=== PATIENT | male | born 1945 | race African-American/Black ===

== ENCOUNTER 2020-01-27 02:53 | Inpatient (IN) | payer MEDICARE, OTHER ==
[2020-01-27] VITALS (9 sets, daily range): BP systolic 129–172; BP diastolic 69–97
[~2020-01-27] VITALS: Ht 177.8 cm; Wt 69.4 kg
[2020-01-27] MEDS ORDERED: CHILDREN'S ASPI81 M1 PO (03:52)
[2020-01-27] MEDS ORDERED: BASAGLAR K100 UNIT/1 SUBQ (03:53)
[2020-01-27] MEDS ORDERED: LIPITOR40 MG PO (03:53)
[2020-01-27] MEDS ORDERED: CHOLECALCIFEROL PO (03:54)
[2020-01-27] MEDS ORDERED: CARVEDILOL12.5 MG PO (03:54)
[2020-01-27] MEDS ORDERED: LISINOPRIL PO (03:55)
[2020-01-27] MEDS ORDERED: NOVOLOG100 UNIT/M SUBQ (03:56)
[2020-01-27 04:37] LABS: BASOPHILS 0.3 % (0.0-2.0); EOSINOPHILS 1.8 % (0.0-3.0); HEMATOCRIT 44.4 % (42.0-52.0); HEMOGLOBIN 14.7 gm/dL (14.0-18.0); LYMPHOCYTES 10.9 % (24.0-44.0); MCH 29.7 pg (26.0-34.0); MCHC 33.1 g/dL (28.0-37.0); MCV 89.8 fL (80.0-100.0); MONOCYTES 9.4 % (1.0-8.0); PLATELET COUNT 263 thou/uL (150-400); POLYS 77.6 % (36.0-66.0); RBC 4.94 mil/uL (4.50-6.00); RDW 16.2 % (10.5-14.5)
[2020-01-27 05:14] LABS: CALCIUM 9.3 mg/dL (8.5-10.1); CREATININE 2.1 mg/dL (0.7-1.3); POTASSIUM 3.7 mmol/L (3.5-5.1)
[2020-01-27 05:20] LABS: ALBUMIN 2.4 g/dL (3.4-5.0); TOTAL BILIRUBIN 0.4 mg/dL (0.2-1.0); TOTAL PROTEIN 8.6 g/dL (6.4-8.2); TROPONIN-I 0.11 ng/mL (<0.06)
--- NOTE | 2020-01-27 07:51 | EKG ---
[facility] [place] [address] ELECTROCARDIOGRAM REPORT Name: KUNAL CHRISTINA Room #: 170-1 ADM IN M.R.#: [id number] Admission: 01/27/20 Attend Phys: Ar Blas Discharge: Date of : 43 Report #: [id number] THIS REPORT FOR: cc: Good Johnson James D. DO Lundgren, Craig H. MD [facility] ~ THIS REPORT FOR: //name// 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: : 1945 Requested By: Carl Patterson Order Number: [id number] MD: David Howard Measurements Intervals [place] Rate: 107 P: 15 AK: 130 QRS: 8 QRSD: 67 T: -77 QT: 337 QTc: 450 Interpretive Statements Sinus tachycardia Atrial premature complex Abnormal R-wave progression, early transition Small inferior Q waves Nonspecific T wave abnormality No previous ECG available for comparison Electronically Signed On 01-27-2020 7:50:53 CDT by David Howard [email or web address] <ELECTRONICALLY SIGNED> By: David Howard MD, [facility] 01/27/20 0750 5 David Howard MD, [facility] /EPI
[2020-01-27 08:02] LABS: URINE BILIRUBIN NEGATIVE (Negative); URINE BLOOD 2+ (Negative); URINE CLARITY CLEAR; URINE COLOR YELLOW; URINE GLUCOSE-RANDOM* NEGATIVE (Negative); URINE KETONES NEGATIVE (Negative); URINE LEUKOCYTES-REFLEX NEGATIVE (Negative); URINE NITRITE-REFLEX NEGATIVE (Negative); URINE PROTEIN (DIPSTICK) 2+ (Negative); URINE UROBILINOGEN 0.2 E.U./dl (0.2-1.0)
[2020-01-27 08:36] LABS: TSH 0.465 uIU/mL (0.358-3.740)
[2020-01-27 08:47] LABS: CASTS None Seen /LPF (None Seen); SQUAMOUS 0-3 Few /LPF (0-3)
[2020-01-27 08:48] LABS: AMORPHOUS URATES Few /LPF (None Seen); BACTERIA-REFLEX 1-9 Few /HPF (None Seen); MUCUS 4-6 Moderate strn/LPF (None Seen); URINE RBC 0-2 Rare /HPF (0-2); URINE WBC-REFLEX 0-5 Rare /HPF (0-5)
--- NOTE | 2020-01-27 15:34 | EKG ---
[facility] [place] [address] ELECTROCARDIOGRAM REPORT Name: KUNAL CHRISTINA Room #: 364-P ADM IN M.R.#: [id number] Admission: 01/27/20 Attend Phys: Ar Blas Discharge: Date of : 43 Report #: [id number] THIS REPORT FOR: cc: Good Johnson James D. DO Lundgren, Craig H. 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 : 1945 Requested By: Ar Blas Order Number: [id number] MD: David Howard Measurements Intervals [place] Rate: 113 P: MO: QRS: 15 QRSD: 103 T: QT: 341 QTc: 468 Interpretive Statements Sinus tachycardia with atrial premature complexes Abnormal R-wave progression, early transition Nonspecific T abnrm, anterolateral leads Baseline wander in lead(s) V6 Compared to ECG 01/27/2020 03:16:28 No significant change was found Electronically Signed On 01-27-2020 15:34:25 CDT by David Howard [email or web address] <ELECTRONICALLY SIGNED> By: David Howard MD, [facility] 01/27/20 1534 7 7 David Howard MD, [facility] /EPI
--- NOTE | 2020-01-27 16:55 | NUR ---
PICC PROCEDURE: RISK, BENEFITS, AND ALTERNATIVE TREATMENT DISCUSSED WITH THE PATIENT'S DPOA. TEACHING GIVEN RELATED TO POSSIBLE COMPLICATIONS SUCH BLEEDING, INFECTION, CLOT, OR VESSEL PERFORATION. INSTRUCTION GIVEN RELATED TO CLABSI PREVENTION WITH LITERATURE LEFT AT THE BEDSIDE. DPOA VOICES UNDERSTANDING AND CONSENT OBTAINED. TRIPLE LUMEN PICC PLACED TO RUE BASILIC VEIN. ONE STICK AND NO COMPLICATIONS. PATIENT TOLERATED WELL. TIP OF PICC CONFIRMED DISTAL SVC PER CHEST XRAY. ELISA RYAN NOTIFIED OKAY TO USE PICC.
--- NOTE | 2020-01-27 18:21 | NUR ---
PATIENT ADMIT TO UNIT AT 0700. ALERT TO SELF. NOTED VT/VFIB ON MONITOR. CRITICAL CARE SPECIALIST CALLED. STARTED CARDIZEM GTT. VSS. COVID POSITIVE. CARDIZEM GTT OFF NOW. ON 5L O2 WITH SAT 90%. NOT TOWARDS POC GOALS.
[2020-01-28 01:06] LABS: GLYCOHEMOGLOBIN (HGB A1C) 10.3 % (4.8-5.6)
[2020-01-28 04:45] VITALS: BP 169/93
[2020-01-28 05:55] LABS: ABSOLUTE NEUTROPHILS 6.2 thou/uL (1.4-8.2); BASOPHILS 0.5 % (0.0-2.0); HEMATOCRIT 39.1 % (42.0-52.0); MCH 28.1 pg (26.0-34.0); MCHC 31.4 g/dL (28.0-37.0); MCV 89.6 fL (80.0-100.0); MONOCYTES 3.2 % (1.0-8.0); PLATELET COUNT 201 thou/uL (150-400); POLYS 87.3 % (36.0-66.0); RBC 4.37 mil/uL (4.50-6.00); RDW 15.6 % (10.5-14.5); WBC 7.2 thou/uL (4.0-11.0)
[2020-01-28 06:07] LABS: HEMOGLOBIN 12.3 gm/dL (14.0-18.0)
--- NOTE | 2020-01-28 06:22 | NUR ---
Pt. alert and oriented to person only. He slept fair during the night. He has been repositioned. Afebrile. SR with PAF. O2 at 6L/NC , no respiratory distress. Incont. of bladder x 2, male external cath placed and had 550 ml out this am. Bed alarm on ,SCD's in place.
--- NOTE | 2020-01-28 06:43 | NUR ---
HOME HOUSEKEEPER notified of gram positive cocci in bld cx. Also notified her of BP this am and elevated d dimer.
[2020-01-28 07:09] LABS: CALCIUM 8.6 mg/dL (8.5-10.1); CREATININE 1.8 mg/dL (0.7-1.3); MAGNESIUM 2.9 mg/dL (1.8-2.4); POTASSIUM 3.3 mmol/L (3.5-5.1); TOTAL BILIRUBIN 0.4 mg/dL (0.2-1.0)
[2020-01-28 07:55] VITALS: BP 181/104
--- NOTE | 2020-01-28 12:37 | HC ---
[facility] [place] [address] CONSULTATION Name: KUNAL CHRISTINA Room #: 364-P ADM IN M.R.#: [id number] Admission: 01/27/20 Attend Phys: Ar Blas Discharge: Date of : 43 Report #: [id number] THIS REPORT FOR: cc: Good Johnson James D. DO Al-Mubaslat, Ahmad MD ~ CC: Good Blas DATE OF SERVICE: 01/27/2020 ENDOCRINE CONSULTATION NOTE CONSULTING PHYSICIAN: Dr. Blas. REASON FOR CONSULTATION: Uncontrolled type 2 diabetes mellitus, severe hyperglycemia. HISTORY OF PRESENT ILLNESS: This is a 74-year-old male patient who has a medical background that is noted for type 2 diabetes mellitus, hypertension, and hyperlipidemia, who was referred to the ER at [facility] from his [facility] residential facility due to shortness of breath. Apparently, the patient has been experiencing an altered mental state, slurred speech and obtundation, and on arrival to the ER, he was found to be hypoxemic and needed support with 4 liters of oxygen. Also, he was found to be in atrial fibrillation with rapid ventricular response and was admitted for further care and monitoring. The patient has been known to have type 2 diabetes mellitus for many years and is maintained on a combination of Basaglar insulin at 25 units at bedtime in addition to NovoLog insulin 17 units with meals. He could not elaborate on the details of his glycemic pattern at home. I do not have a blood glucose log to go through in order to establish that knowledge. It is not documented that the patient has issues with diabetic retinopathy, neuropathy and there is no mention of chronic kidney disease. Also, the patient is known to have hypertension and is maintained on carvedilol 12.5 mg t.i.d. and lisinopril 40 mg daily. He is also hyperlipidemic and is maintained on 40 mg at bedtime. The patient is known to have CAD, status post CABG as well as a history of CVA in the past. REVIEW OF SYSTEMS: CONSTITUTIONAL: Fatigue, tiredness, no weight changes, but he has declining appetite. HEENT: Negative for sore throat, sinus pain or ear drainage. PULMONARY: Shortness of breath, tachypnea, intermittent cough, but no hemoptysis. CARDIAC: Dyspnea on exertion. No chest pain, syncope or presyncope. [address] [address] CONSULTATION Name: KUNAL CHRISTINA Room #: 364-P [facility] IN .R.#: [id number] Admission: 01/27/20 Attend Phys: Ar Blas Discharge: Date of : 43 Report #: [id number] GASTROINTESTINAL: Negative for significant issues with abdominal pain, nausea, vomiting or major changes in bowel movement frequency. NEUROLOGY: Negative for seizure activity. Severe frequent headaches, but noted for altered mental status. UROLOGY: Negative for dysuria, hematuria, or frequency. Otherwise, the review of systems is noncontributory unless mentioned in HPI. PAST MEDICAL HISTORY: 1. Type 2 diabetes mellitus. 2. Hypertension. 3. Hyperlipidemia. 4. Coronary artery disease, status post coronary artery bypass graft. 5. Cerebrovascular accident. 6. Hepatitis C with cirrhosis. 7. History of GI bleed. 8. Atrial fibrillation with rapid ventricular response on presentation. 9. Gastroesophageal reflux disease. OUTPATIENT MEDICATIONS: Include aspirin 81 mg daily, atorvastatin 40 mg at bedtime, Basaglar insulin 25 units at bedtime, carvedilol 12.5 mg b.i.d., vitamin D 1000 units daily, lisinopril 40 mg daily, NovoLog 17 units with meals. ALLERGIES: No known drug allergies. FAMILY HISTORY: Noncontributory. SOCIAL HISTORY: The patient resides at a long-term care facility. He does not use tobacco, alcohol or illicit drugs. PHYSICAL EXAMINATION: GENERAL: Pleasant elderly male patient, who appears lethargic, but not in active pain or distress. VITAL SIGNS: Blood pressure 129/69 mmHg, heart rate is 80 beats per minute, respirations 20 per minute, temperature 36.9 degrees Celsius. CONSTITUTIONAL: He appears lethargic, tired, but not in apparent pain or distress. HEENT: Anicteric sclerae. Intact extraocular motions. NECK: Supple, without carotid bruits or thyromegaly. CHEST: Noted for limited air entry bilaterally with scattered rales. No wheezes. HEART: Irregularly irregular without murmurs or gallops. ABDOMEN: Soft, lax. No guarding. Active bowel sounds. EXTREMITIES: Lower extremity exam, trace ankle edema. Palpable pedal pulses. NEUROLOGIC: Awake, lethargic. Moves extremities spontaneously, not able to cooperate with a full neurological exam. PSYCHIATRIC: Minimally interactive, short concise answers. [facility] [address] [place] [address] CONSULTATION Name: KUNAL CHRISTINA Room #: 364-P [facility] IN M.R.#: [id number] Admission: 01/27/20 Attend Phys: Ar Blas Discharge: Date of : 43 Report #: [id number]. LABORATORY DATA: Blood glucose on arrival was 295, then it was at 364 mg/dL. Otherwise, sodium 151, potassium 3.7, chloride 115, CO2 of 22, anion gap of 14, BUN 67, creatinine 2.1, glucose 227. AST 88, total bilirubin 0.4, calcium 9.3, alkaline phosphatase 84, ALT 50, total protein 8.6, albumin 2.4, EGFR 38. Lactic acid 2.5, troponin 0.09. BNP 725. White blood count 9.0, hemoglobin 14.7, hematocrit 44.4, platelets 263. Hemoglobin A1c was ordered and is pending. COVID-19 testing was positive. ASSESSMENT AND PLAN: 1. Type 2 diabetes mellitus. The patient has a longstanding history of type 2 diabetes mellitus and is maintained on basal bolus insulin therapy. His level of control is not very clear to me given the sparsity of data at this point. Hemoglobin A1c was ordered and is pending and would help shed some light on that aspect. In the immediate setting, I would switch the patient off of the dextrose based IV fluids solutions and initiate therapy with long-acting insulin coverage in the form of Lantus insulin 16 units daily as well as Humalog supplemental scale low intensity. I will refrain from adding scheduled insulin at this point in time until the patient shows some consistency of p.o. intake. Instead, I will resort to linagliptin 5 mg daily. I will maintain blood glucose monitoring a.c. and at bedtime and adjust his regimen accordingly. 2. Hypernatremia. The patient is hypernatremic at 151, which appears to be in relation to his dehydration and fluid deficit. As noted above, I would advise switching the patient off of dextrose based solutions towards half-normal saline at a rate that is acceptable given his cardiac history. Sodium monitoring to continue. 3. Hypertension. The patient's level of blood pressure control is adequate, he is to continue the current regimen. 4. Hyperlipidemia. The patient is maintained on atorvastatin therapy for hyperlipidemia. This is to resume when the patient is clinically stable. 5. Pneumonia. The patient is positive for COVID-19 and has arrived in the hypoxemic state that did fair with O2 support at 4 liters. He is currently initiated on remdesivir therapy in addition to azithromycin and IV Solu-Medrol at 40 mg b.i.d. I certainly appreciate this consultation by Dr. Blas. <ELECTRONICALLY SIGNED> By: Alex Munoz MD 01/28/20 1237 1555 1712 Alex Munoz MD /nt
--- NOTE | 2020-01-28 15:48 | NUR ---
INITIAL ASSESSMENT: ITZEL reviewed chart and spoke with nursing and attending physician. Pt is in Enhanced Isolation due to COVID-19. Pt was admitted from [facility]. Pt unable to answer questions via phone. ITZEL left voice messaege for pt's son, Antonio ([phone]). Per chart, pt has hx of CVA/DM. Pt is currently on 6L of O2 and on IV abx. ITZEL faxed clinical and therapy info to [facility] post acute liaison for review. Confirmed info was received. Will need insurance authorization if skilled services are recommended at time of discharge. ITZEL is following to assist as needed with discharge planning.
[2020-01-28 16:34] VITALS: BP 134/81
[2020-01-28 17:33] VITALS: BP 121/75
--- NOTE | 2020-01-28 17:49 | NUR ---
assumed care of pt at 0700. pt aox1 in no acute distress. spo2 > 92% on 6L NC. up to chair with PT throughout the day. good appetite. hypertensive this AM - hospitalist notified. appears to be going in and out of afib and sinus rhythm on telemetry. vitals currently stable. good urine output. iv abx infusing per order. good progress toward poc goals.
[2020-01-28 20:07] VITALS: BP 119/67
[2020-01-29 05:08] VITALS: BP 170/94
[2020-01-29 06:00] LABS: HEMATOCRIT 39.2 % (42.0-52.0); HEMOGLOBIN 12.2 gm/dL (14.0-18.0); MCH 27.7 pg (26.0-34.0); MCHC 31.1 g/dL (28.0-37.0); MCV 89.1 fL (80.0-100.0); RBC 4.4 mil/uL (4.50-6.00); RDW 15.7 % (10.5-14.5); WBC 9.3 thou/uL (4.0-11.0)
[2020-01-29 06:26] LABS: ALBUMIN 2.2 g/dL (3.4-5.0); CALCIUM 8.4 mg/dL (8.5-10.1); CREATININE 1.6 mg/dL (0.7-1.3); MAGNESIUM 2.6 mg/dL (1.8-2.4); POTASSIUM 3.2 mmol/L (3.5-5.1); TOTAL BILIRUBIN 0.3 mg/dL (0.2-1.0)
--- NOTE | 2020-01-29 06:41 | NUR ---
Pt. slept fair during the night in between turns. Pleasantly confused. Afebrile. SR with PAC ,occ PVC and intermittent a fib with controlled rate. O2 at 6L/NC and he sometimes takes oxygen off. No respiratory distress. Bed alarm on and SCD's in place. Incontinent of bladder , male external cath in place. Will continue to monitor.
[2020-01-29 08:03] VITALS: BP 176/90
[2020-01-29 12:46] VITALS: BP 135/82
[2020-01-29 15:38] VITALS: BP 119/63
--- NOTE | 2020-01-29 16:59 | NUR ---
SW reviewed chart and spoke with nursing and attending physician. Pt remains in Enhanced Isolation due to COVID-19. Pt is currently on 6L of O2. SW provided update to [facility] post-acute liaison. Plan is for pt to return to [facility] when medically stable. ITZEL is following to assist as needed with discharge planning.
--- NOTE | 2020-01-29 17:03 | NUR ---
PT KNOWS HIS NAME, BUT PT IS CONFUSED, AND PT CANNOT FOLLOW COMMANDS, PT DEENS HELP MEALS ( FEEDING PT) AND ADL, PT IS CONTINUING IV ABX AND O2 6L/MIN/NC, PT'S VS AND O2SAT ARE STABLE, PT GETS UP TO CHAIR WITH ASSIST.
[2020-01-29 20:00] VITALS: BP 148/92
[2020-01-30 00:19] VITALS: BP 157/90
[2020-01-30 03:35] VITALS: BP 168/85
[2020-01-30 06:11] LABS: ALBUMIN 2.1 g/dL (3.4-5.0); CALCIUM 7.7 mg/dL (8.5-10.1); CREATININE 1.5 mg/dL (0.7-1.3); MAGNESIUM 2.4 mg/dL (1.8-2.4); POTASSIUM 3.2 mmol/L (3.5-5.1); TOTAL BILIRUBIN 0.3 mg/dL (0.2-1.0); TOTAL PROTEIN 6.6 g/dL (6.4-8.2)
--- NOTE | 2020-01-30 06:20 | NUR ---
PT AWAKE AT TIMES, ORIENTED TO HIS NAME ONLY. HE STATED HE WAS BORN IN THE YEAR "[birth year]." INCONTINENT THROUGHOUT THE NIGHT. DOES NOT SEEM AWARE THAT HIS HAS BEEN INCONTIENT EITHER. DENIED ANY PAIN, DENIED ANY SOA THOUGH O2 IS AT 6L PER NC. SEE CHARTING.
[2020-01-30 08:14] VITALS: BP 151/86
[2020-01-30 15:57] VITALS: BP 161/80
[2020-01-30 19:16] VITALS: BP 133/84
--- NOTE | 2020-01-30 19:35 | NUR ---
PT IS CONFUSED, PT CAN FOLLOW SOME COMMANDS, PT IS CONTINUING O2 6L/MIN/NC , PT'S VS AND O2SAT ARE STABLE, RN HAS CALLED DR NICHOLAS MAY ASPIRATION FROM HIS MEALS , SO NEW ORDER : KEEP NPO AND IV FLUID CHANGE TO D5 1/2 NS @80ML/HR, PT IS CONTINUING ISOLATION FOR POSITIVE COVID.
[2020-01-31 04:34] VITALS: BP 145/93
[2020-01-31 05:41] LABS: ALBUMIN 1.9 g/dL (3.4-5.0); CALCIUM 7.3 mg/dL (8.5-10.1); CREATININE 1.3 mg/dL (0.7-1.3); POTASSIUM 3.6 mmol/L (3.5-5.1); TOTAL BILIRUBIN 0.3 mg/dL (0.2-1.0)
--- NOTE | 2020-01-31 06:01 | NUR ---
ASSUMED CAER OF PT AT 1900RS. PT IS AOX1 AND IS A TOTAL CARE. FALL PRECAUTION IN PLACE. PT RUNNING SA W/PVCs ON TELE. PT ON 6L O2 VIA NC. PT IS NPO. NEEDS MUS BE ANTICIPAED. VSS AND NO S/S OF ACUTE DISTRESS. WILL CONTINUE TO MONITOR.
[2020-01-31 07:47] VITALS: BP 152/95
--- NOTE | 2020-01-31 08:16 | NUR ---
ASSUMED CARE OF PT AT SHIFT CHANGE. FORGETFUL, IS NOT IMPULSIVE THUS FAR. ALERT TO SELF, NOT BDATE, GENERALIZED ALL OVER PAIN. SEE SEPARATE INTERVENTIONS FOR ASSESSMENTS. WILL CONTINUE TO MONITOR. PT DENIES NEEDING 02 AT HOME.
[2020-01-31 15:33] VITALS: BP 137/92
[2020-01-31 20:30] VITALS: BP 133/78
--- NOTE | 2020-02-01 05:11 | NUR ---
ASSUMED CARE FROM DAY SHIFT , PT RESTED WELL THROUGHOUT HOURLY ROUNDS, NO CHANGES NOTED IN PT ASSESSMENT, WILL CONITNUE WITH PT CURRENT PLAN OF CARE.
[2020-02-01 05:15] VITALS: BP 144/79
[2020-02-01 06:07] LABS: HEMATOCRIT 37.5 % (42.0-52.0); MCH 28.2 pg (26.0-34.0); MCHC 31.8 g/dL (28.0-37.0); MCV 88.5 fL (80.0-100.0); RBC 4.24 mil/uL (4.50-6.00); RDW 15.2 % (10.5-14.5); WBC 10.7 thou/uL (4.0-11.0)
[2020-02-01 06:22] LABS: CALCIUM 7.6 mg/dL (8.5-10.1); CREATININE 1.5 mg/dL (0.7-1.3); POTASSIUM 3.7 mmol/L (3.5-5.1)
[2020-02-01 08:07] VITALS: BP 151/83
[2020-02-01 11:36] VITALS: BP 143/72
--- NOTE | 2020-02-01 14:40 | NUR ---
PT CARE ASSUMED AT 0700, PT ALERT AND AWAKE. DISORIENTED X4, PT ABLE TO FOLLOW SOME COMMANDS. PT IS ON 2L OF O2 VIA NC. NO SIGNS OF DISTRESS NOTED. PT INCONTINENT, FREQUENT CHECKS BEING DONE. PT HAD A LARGE BM, PT CLEAN UP AND BED CHANGED. FALL PRECAUTIONS IN PLACE. CALL LIGHT AND TABLE IN REACH. BED AT LOWEST LEVEL WITH ALARM ON. WILL CONTINUE TO MONITOR.
[2020-02-01 16:27] VITALS: BP 146/71
[2020-02-01 20:22] VITALS: BP 142/87
[2020-02-02 03:54] VITALS: BP 166/91
--- NOTE | 2020-02-02 06:42 | NUR ---
PT VANCOMYCIN TROUGH LEVEL AT 0030 WAS 19 CALLED PLACED TO [facility] [phone] ANSWERING DID NOT PLUMBER AND TINNER AND AFTER ONE RING DISCONNECTED. CALL PLACED TO IN HOUSE PHARMACY WAS INFORMED THAT FOR PNEUMONIA TROUGH LEVEL IS 15-20 . VANCOMYCIN THEN STARTED, ORDERED. PT RESTED WELL THROUGHOUT HOURLY ROUNDS, WILL CURRENT PLAN OF CARE.
[2020-02-02] MEDS ORDERED: NYSTATIN100000 UNI SW&SWALLOW (08:42)
[2020-02-02] MEDS ORDERED: ENOXAPARIN80 MG/0.1 SUBQ (08:43)
[2020-02-02] MEDS ORDERED: BENAZEPRIL HCL20 MG PO (08:43)
[2020-02-02] MEDS ORDERED: CARVEDILOL25 MG PO (08:43)
[2020-02-02] MEDS ORDERED: LANTUS SUBQ (08:44)
[2020-02-02 10:25] VITALS: BP 144/87
--- NOTE | 2020-02-02 16:20 | NUR ---
ITZEL reviewed chart and spoke with nursing. Pt remains in Enhanced Isolation due to COVID-19. Pt's repeat test yesterday is positive. Pt was afebrile over the weekend. TIZEL faxed clinical updates/vital signs/COVID test results to [facility] post-acute liaison for review. [facility] is able to accept pt back today. ITZEL updated attending physician. THEATRE DIRECTOR placed discharge orders. ITZEL faxed finalized discharge orders/summary to [facility]. Stretcher van transportation scheduled for [phone] per facility's arrangements. ITZEL spoke with pt's son, Antonio, via phone to provide update and notify of discharge. Pt's son is aware and in agreement with plan. Chart copy requested. Nursing provided with number to call report. ITZEL was contacted by [facility] post-acute liaison at 1535, stating they are not able to accept pt back today, as they do not have a male isolation room available today. Per liaison, they will be able to accept pt back tomorrow. Liaison to notify pt's family. ITZEL updated nursing and attending physician. ITZEL also discussed case with Director of Case Mgmt. ITZEL is following to assist as needed with discharge planning.
[2020-02-02 18:47] VITALS: BP 144/87
--- NOTE | 2020-02-04 02:03 | NUR ---
FOLLOWING NOTE IS REGARDING CARE THAT WAS PROVIDED TO THE PT ON THE EVENING OF 02/02/20: 1930 - RN RECEIVED REPORT FROM AM SHIFT RN, PER REPORT PT WAS TO BE DISCHARGED BACK TO [facility] IN THE AM BUT WAS UNSUCCESFUL D/T LACK OF AVAILABILITY, PT WAS EXPECTED TO DISCHARGE THE DAY AFTER 02/03/20 1940 - RN PEEKED INTO THE PT 'S ROOM WITH PPE ON TO CHECK THAT THE PT IS OKAY THIS WAS RN'S NEW PATIENT. PT WAS SEEN WITH OXYGEN IN PLACE, PT IS AOX1, AND RESTING IN BED WITH NO SIGNS OF DISTRESS. RN WENT BACK OUT TO NURSE'S STATION TO GATHER MORE INFORMATION ABOUT THE PATIENT(S) PRIOR TO ASSESMENT(S) RN WENT ONTO ROUND ON OTHER PT ASSIGNMENTS, PROVIDED COMPLETE CARE TO TWO TOTAL CARE (MAX ASST). RN STEPPED OUT OF THE ROOM OF ANOTHER PT AROUND 2240, AND WAS TOLD BY ANOTHER STAFF THAT THE LEAD WAS OFF IN THE ROOM 364. AT THAT TIME THE RN WAS NOTIFIED BY PRINCIPAL ARCHITECTURAL FIRM THAT THE BLOOD SUGAR WAS IN THE 300S (PRINCIPAL ARCHITECTURAL FIRM WAS IN THE ROOM AT 2220). RN PROMPTLY PROCEEDED TO ADDRESS THE SITUATION, GRABBED MEDS/LEADS/AND EQUIPMENTS FOR THE ROOM AND HEADED THAT DIRECTION 2250 - RN HAD STEPPED INTO THE PT ROOM, PT IS UNRESPONSIVE, CAROTID PULSE NOT PRESENT, COLD BLUE INITATED, CPR STARTED IMMEIDATELY. BACK BOARD IN PLACE, RN NOW IN ROOM WITH PRINCIPAL ARCHITECTURAL FIRM, RN IS PERFORMING CPR, CODE BLUE TEAM ARRIVES. DNP PRESENT, ER MD PRESENT. ACLS IN PROGRESS. EPINEPHRINE/AMIODARONE GIVEN, PT INTUBATED. PT HAS PEA, PULSE NOT PALPABLE AT CAROTID/FEMORAL SITE, ACLS CONTINUES. FAMILY MEMBER WANTS ALL LIFE SAVING MEASURES TO BE TAKEN, ACLS CONTINUES. 8 - TIME OF ANNOUNCED BY DR. RENO RN PROCEEDS WITH PRINCIPAL ARCHITECTURAL FIRM AND ANOTHER RN WITH POST MORTEM CARE AFTER. PT'S BELONGINGS (A RING/GLASSES/SHOES/T-SHIRTx2/SWEATPANTS) PLACED IN A BAG. POST MORTEM CARE FOR PT WITH COVID FOLLOWED PER POLICY. MTN NOTIFIED. PT'S SISTER REACHED, ASKED REGARDING POST MORTEM ARRANGEMENTS, NONE IN PLACE AND PT'S SON MAY KNOW, ATTEMPTED TO REACH PT'S SON, NOT SUCCESFUL. 02/03/20 0700 - PT'S SON CALLS THE 3W UNIT, THIS RN HANDED THE PHONE CALL, PT'S SON NOT AWARE OF LAST NIGHT'S OCCURANCE. RN NOTIFIES SON OF THE PT OF HIS FATHER'S THE EVENING PRIOR. PT'S SON IN TREMENDOUS DISTRESS, PHONE DISCONNECTS. RN CALLS PT'S SON AGAIN AFTER FEW MINUTES. EXPLAINED TO PT'S SON THAT STAFF MEMBERS ARE PRESENT/CHAPLAINS PRESENT TO ASSIST THE FAMILY WITH PRESENTING NEEDS. SON VERBALIZES UNDERSTANDING, THEN HANGS UP. RN LEAVES UNIT.
== END 2020-02-02 23:18 | DRG 871 ==
LOC: ER 02:53 → EROBS 05:42 → 3W 05:42
PROVIDERS: Emergency Medicine; Nurse Practitioner; ADMIT Hospitalist; ATTEND Hospitalist
PROC: 02HV33Z Insertion of Infusion Device into Superior Vena Cava, Percutaneous Approach (ICD-10-PCS; principal; 2020-01-27)
DX: A41.9 Sepsis, unspecified organism (principal); J96.21 Acute and chronic respiratory failure with hypoxia; N17.0 Acute kidney failure with tubular necrosis; E43 Unspecified severe protein-calorie malnutrition; U07.1 COVID-19; J12.89 Other viral pneumonia; E87.0 Hyperosmolality and hypernatremia; I13.0 Hypertensive heart and chronic kidney disease with heart failure and stage 1 through stage 4 chronic kidney disease, or unspecified chronic kidney disease; I50.9 Heart failure, unspecified; I48.91 Unspecified atrial fibrillation; E78.5 Hyperlipidemia, unspecified; I25.10 Atherosclerotic heart disease of native coronary artery without angina pectoris; K74.60 Unspecified cirrhosis of liver; K21.9 Gastro-esophageal reflux disease without esophagitis; E11.22 Type 2 diabetes mellitus with diabetic chronic kidney disease; N18.9 Chronic kidney disease, unspecified; E86.0 Dehydration; E11.51 Type 2 diabetes mellitus with diabetic peripheral angiopathy without gangrene; Z68.22 Body mass index [BMI] 22.0-22.9, adult; Z95.1 Presence of aortocoronary bypass graft; Z86.73 Personal history of transient ischemic attack (TIA), and cerebral infarction without residual deficits; Z86.19 Personal history of other infectious and parasitic diseases; Z79.01 Long term (current) use of anticoagulants; Z99.81 Dependence on supplemental oxygen; Z79.82 Long term (current) use of aspirin; Z79.4 Long term (current) use of insulin; Z79.899 Other long term (current) drug therapy
CPT/HCPCS: 10879; 27000